=== PATIENT | male | born 1960 ===

== ENCOUNTER → 2023-05-25 | Outpatient (REF) | payer BC ==
[2023-05-25 17:40] LABS: CREATININE, URINE 40.2 MG/DL
[2023-05-25 18:03] LABS: MAU/CREAT RATIO 1211.4 MCG/MG (0.0-30.0)
== END ==
LOC: M LAB REF 16:59
PROVIDERS: ATTEND Internal Medicine Endocrinology, Diabetes & Metabolism
DX: E11.22 Type 2 diabetes mellitus with diabetic chronic kidney disease (principal)